=== PATIENT | male | born 1960 | race Hispanic/Latino ===

== ENCOUNTER 2017-09-08 12:21 | Inpatient (IN) | payer MEDICAID ==
[2017-09-08 13:37] LABS: Basophils % (Auto) 0.2 % (0.0-1.8); Eosinophils % (Auto) 1.9 % (0.0-4.3); Mean Corpuscular HGB Conc 30 % (32-34); Mean Corpuscular Hemoglobin 28 pg (28-32); Mean Corpuscular Volume 93 fl (84-94); Red Blood Count 4.31 M/mm3 (3.65-5.03); Red Cell Distribution Width 17.2 % (13.2-15.2); White Blood Count 6.4 K/mm3 (4.5-11.0)
[2017-09-08 13:40] LABS: Hematocrit 39.9 % (35.5-45.6); Hemoglobin 12.1 gm/dl (11.8-15.2); Platelet Count 92 K/mm3 (140-440)
[2017-09-08 13:53] LABS: Anion Gap 15 mmol/L; BUN/Creatinine Ratio 32; Blood Urea Nitrogen 35 mg/dL (9-20); Calcium 8.5 mg/dL (8.4-10.2); Carbon Dioxide 26 mmol/L (22-30); Chloride 135.6 mmol/L (98-107); Glucose 453 mg/dL (75-100); Potassium 3.6 mmol/L (3.6-5.0)
[2017-09-08 14:02] LABS: Sodium 176 mmol/L (137-145)
[2017-09-08] MEDS ORDERED: NACL 0.9% 1000 ML 1,000 ML IV ONE ×2 (16:33→19:25)
--- NOTE | 2017-09-08 17:52 | Cat Scan Report ---
FINAL REPORT PROCEDURE: CT HEAD/BRAIN WO CON TECHNIQUE: Computerized tomography of the head was performed without contrast material. HISTORY: ams COMPARISON: No prior studies are available for comparison. 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 Ventricles and subarachnoid spaces: Moderate to severely enlarged likely in proportionate degree of volume loss related to atrophy. Cerebrum: No evidence of hemorrhage, acute infarction or mass . Cerebellum and brainstem: No evidence of hemorrhage, acute infarction or mass. Vasculature: Intracranial atherosclerosis Comments: Moderate diffuse atrophy with scattered microischemic change. Encephalomalacia in the frontal lobes. IMPRESSION: No definite acute intracranial pathology
--- NOTE | 2017-09-08 18:00 | Emergency Department Report ---
ED Altered Mental Status HPI - General Chief Complaint: Hyperglycemia Stated Complaint: AMS/ELEV BLOOD SUGAR Time Seen by Provider: 09/08/17 16:32 Source: EMS, old records reviewed (no previous records for comparison) Mode of arrival: Stretcher Limitations: Altered Mental Status - History of Present Illness Initial Comments: 57-year-old male with a past medical history of diabetes, dementia, psychosis, and hypertension presents from a [facility] intermediate for altered mental status elevated glucose at 6:40 AM. At baseline per intermediate paperwork patient is able to feed himself and ambulates adlib. Currently patient is able to follow some basic commands however speaks intermittently and is difficult to understand. Pt is full Code. No pain reported - Related Data Allergies Allergy/AdvReac Type Severity Reaction Status Date / Time No Known Allergies Allergy Unverified 09/08/17 12:30 ED Review of Systems ROS: Stated complaint: AMS/ELEV BLOOD SUGAR Other details as noted in HPI Comment: Unobtainable due to pts medical conditions (limited) ED Past Medical Hx - Past Medical History Previous Medical History?: Yes Hx Hypertension: Yes Hx Diabetes: Yes Hx Psychiatric Treatment: Yes (psychosis) Hx Dementia: Yes - Surgical History Additional Surgical History: unknown - Social History Smoking Status: Unknown if ever smoked ED Physical Exam - General Limitations: Altered Mental Status - Other Other exam information: General: Patient is alert and makes eye consult Head exam: Atraumatic, normocephalic Eyes exam: Normal appearance, pupils equal reactive to light, will not track finger movement with his eyes ENT: Dried mucous membranes Neck exam: Normal inspection, full range of motion, no meningismus nontender Respiratory exam: Clear to auscultation bilateral, no wheezes, rales, crackles Cardiovascular: Normal rate and rhythm Abdomen: Soft, nondistended, mild suprapubic tenderness on palpation, with normal bowel sounds, no rebound, or guarding Extremity: Full range of motion normal inspection no deformity Back: Normal Inspection, full range of motion, no tenderness Neurologic: Alert, speaks on occasion but incomprehensible at times, no facial droop or asymmetry, equal hand sectionizer, equal foot dorsiflexion but would not lift her legs off the bed against gravity. Sensation grossly intact Psychiatric: normal affect, normal mood Skin: Warm, dry, intact ED Course Vital Signs 09/08/17 09/08/17 09/08/17 12:53 15:08 15:15 Temperature 97.8 F Pulse Rate 75 Respiratory 18 13 Rate Blood Pressure 101/63 Blood Pressure 95/61 [Left] O2 Sat by Pulse 96 91 97 Oximetry 09/08/17 09/08/17 09/08/17 15:31 15:45 16:00 Temperature Pulse Rate 63 60 57 L Respiratory 9 L 25 H 30 H Rate Blood Pressure 88/44 102/64 116/56 Blood Pressure [Left] O2 Sat by Pulse 96 97 94 Oximetry 09/08/17 09/08/17 09/08/17 16:15 16:30 16:45 Temperature Pulse Rate 62 61 59 L Respiratory 24 11 L 12 Rate Blood Pressure 116/56 102/63 100/71 Blood Pressure [Left] O2 Sat by Pulse 93 90 98 Oximetry 09/08/17 09/08/17 09/08/17 17:00 17:15 17:50 Temperature Pulse Rate 62 57 L Respiratory 16 24 Rate Blood Pressure 111/62 100/63 Blood Pressure [Left] O2 Sat by Pulse 96 100 96 Oximetry 09/08/17 09/08/17 09/08/17 18:01 18:15 18:31 Temperature Pulse Rate 56 L 56 L Respiratory 15 24 Rate Blood Pressure 98/58 108/54 Blood Pressure [Left] O2 Sat by Pulse 95 100 95 Oximetry 09/08/17 09/08/17 09/08/17 18:45 19:00 19:15 Temperature Pulse Rate 56 L 54 L 54 L Respiratory 23 25 H 14 Rate Blood Pressure 107/59 119/61 98/49 Blood Pressure [Left] O2 Sat by Pulse 94 97 94 Oximetry 09/08/17 09/08/17 09/08/17 19:30 19:45 20:00 Temperature Pulse Rate 53 L 76 62 Respiratory 17 26 H 10 L Rate Blood Pressure 103/55 102/58 112/64 Blood Pressure [Left] O2 Sat by Pulse 96 97 Oximetry 09/08/17 09/08/17 09/08/17 20:15 20:31 20:45 Temperature Pulse Rate 57 L 60 69 Respiratory 15 8 L 12 Rate Blood Pressure 112/64 122/44 122/44 Blood Pressure [Left] O2 Sat by Pulse Oximetry 09/08/17 09/08/17 09/08/17 21:00 21:15 21:31 Temperature Pulse Rate 58 L 60 59 L Respiratory 25 H 18 13 Rate Blood Pressure 113/48 113/48 134/47 Blood Pressure [Left] O2 Sat by Pulse Oximetry 09/08/17 09/08/17 09/08/17 21:45 22:01 22:19 Temperature Pulse Rate 78 60 Respiratory 12 16 Rate Blood Pressure 134/47 118/81 Blood Pressure [Left] O2 Sat by Pulse 98 Oximetry 09/08/17 23:25 Temperature 98.2 F Pulse Rate Respiratory Rate Blood Pressure Blood Pressure [Left] O2 Sat by Pulse Oximetry - Reevaluation(s) Reevaluation #1: 09/08/17 18:01 IV fluids and insulin initiated for dehydration and hypertension with hypernatremia. Systolic pressure 93 quickly increased to above 100 prior to administration of IV fluid Reevaluation #2: 09/08/17 19:26 1 L normal saline completed. Patient was straight cathed twice with no urine output. Patient instructed to place Roach in a second liter of normal saline ordered. Therefore urine pending at disposition - Lab Data Result diagrams: 09/08/17 13:19 09/08/17 22:09 Lab Results 09/08/17 09/08/17 09/08/17 Range/Units 13:19 13:19 13:19 WBC 6.4 (4.5-11.0) K/mm3 RBC 4.31 (3.65-5.03) M/mm3 Hgb 12.1 (11.8-15.2) gm/dl Hct 39.9 (35.5-45.6) % MCV 93 (84-94) fl MCH 28 (28-32) pg MCHC 30 L (32-34) % RDW 17.2 H (13.2-15.2) % Plt Count 92 L (140-440) K/mm3 Lymph % (Auto) 37.0 H (13.4-35.0) % Butler % (Auto) 7.2 (0.0-7.3) % Eos % (Auto) 1.9 (0.0-4.3) % Baso % (Auto) 0.2 (0.0-1.8) % Lymph # 2.3 (1.2-5.4) K/mm3 Butler # 0.5 (0.0-0.8) K/mm3 Eos # 0.1 (0.0-0.4) K/mm3 Baso # 0.0 (0.0-0.1) K/mm3 Seg Neutrophils % 53.7 (40.0-70.0) % Seg Neutrophils # 3.4 (1.8-7.7) K/mm3 VBG pH 7.456 H (7.320-7.420) Sodium 176 H* (137-145) mmol/L Potassium 3.6 (3.6-5.0) mmol/L Chloride 135.6 H (98-107) mmol/L Carbon Dioxide 26 (22-30) mmol/L Anion Gap 15 mmol/L BUN 35 H (9-20) mg/dL Creatinine 1.1 (0.8-1.5) mg/dL Estimated GFR > 60 ml/min BUN/Creatinine Ratio 32 % Glucose 453 H (75-100) mg/dL POC Glucose (70-105) Calcium 8.5 (8.4-10.2) mg/dL Total Creatine Kinase (55-170) units/L CK-MB (CK-2) (0.0-4.0) ng/mL CK-MB (CK-2) Rel Index (0-4) Troponin T (0.00-0.029) ng/mL Urine Color (Yellow) Urine Turbidity (Clear) Urine pH (5.0-7.0) Ur Specific [place] (1.003-1.030) Urine Protein (Negative) mg/dL Urine Glucose (UA) (Negative) mg/dL Urine Ketones (Negative) mg/dL Urine Blood (Negative) Urine Nitrite (Negative) Urine Bilirubin (Negative) Urine Urobilinogen (<2.0) mg/dL Ur Leukocyte Esterase (Negative) Urine WBC (Auto) (0.0-6.0) /HPF Urine RBC (Auto) (0.0-6.0) /HPF U Epithel Cells (Auto) (0-13.0) /HPF Urine Bacteria (Auto) (Negative) /HPF Urine Mucus /HPF 09/08/17 09/08/17 09/08/17 Range/Units 13:19 16:41 20:00 WBC (4.5-11.0) K/mm3 RBC (3.65-5.03) M/mm3 Hgb (11.8-15.2) gm/dl Hct (35.5-45.6) % MCV (84-94) fl MCH (28-32) pg MCHC (32-34) % RDW (13.2-15.2) % Plt Count (140-440) K/mm3 Lymph % (Auto) (13.4-35.0) % [place] % (Auto) (0.0-7.3) % Eos % (Auto) (0.0-4.3) % Baso % (Auto) (0.0-1.8) % Lymph # (1.2-5.4) K/mm3 Butler # (0.0-0.8) K/mm3 Eos # (0.0-0.4) K/mm3 Baso # (0.0-0.1) K/mm3 Seg Neutrophils % (40.0-70.0) % Seg Neutrophils # (1.8-7.7) K/mm3 VBG pH (7.320-7.420) Sodium (137-145) mmol/L Potassium (3.6-5.0) mmol/L Chloride (98-107) mmol/L Carbon Dioxide (22-30) mmol/L Anion Gap mmol/L BUN (9-20) mg/dL Creatinine (0.8-1.5) mg/dL Estimated GFR ml/min BUN/Creatinine Ratio % Glucose (75-100) mg/dL POC Glucose 436 H (70-105) Calcium (8.4-10.2) mg/dL Total Creatine Kinase 936 H (55-170) units/L CK-MB (CK-2) 4.4 H (0.0-4.0) ng/mL CK-MB (CK-2) Rel Index 0.4 (0-4) Troponin T < 0.010 (0.00-0.029) ng/mL Urine Color Gun[place] (Yellow) Urine Turbidity Clear (Clear) Urine pH 5.0 (5.0-7.0) Ur Specific [place] 1.028 (1.003-1.030) Urine Protein 100 mg/dl (Negative) mg/dL Urine Glucose (UA) >=500 (Negative) mg/dL Urine Ketones Neg (Negative) mg/dL Urine Blood Lg (Negative) Urine Nitrite Neg (Negative) Urine Bilirubin Neg (Negative) Urine Urobilinogen 4.0 (<2.0) mg/dL Ur Leukocyte Esterase Neg (Negative) Urine WBC (Auto) 4.0 (0.0-6.0) /HPF Urine RBC (Auto) 105.0 (0.0-6.0) /HPF U Epithel Cells (Auto) 1.0 (0-13.0) /HPF Urine Bacteria (Auto) 1+ (Negative) /HPF Urine Mucus 3+ /HPF 09/08/17 Range/Units 21:38 WBC (4.5-11.0) K/mm3 RBC (3.65-5.03) M/mm3 Hgb (11.8-15.2) gm/dl Hct (35.5-45.6) % MCV (84-94) fl MCH (28-32) pg MCHC (32-34) % RDW (13.2-15.2) % Plt Count (140-440) K/mm3 Lymph % (Auto) (13.4-35.0) % Butler % (Auto) (0.0-7.3) % Eos % (Auto) (0.0-4.3) % Baso % (Auto) (0.0-1.8) % Lymph # (1.2-5.4) K/mm3 Butler # (0.0-0.8) K/mm3 Eos # (0.0-0.4) K/mm3 Baso # (0.0-0.1) K/mm3 Seg Neutrophils % (40.0-70.0) % Seg Neutrophils # (1.8-7.7) K/mm3 VBG pH (7.320-7.420) Sodium (137-145) mmol/L Potassium (3.6-5.0) mmol/L Chloride (98-107) mmol/L Carbon Dioxide (22-30) mmol/L Anion Gap mmol/L BUN (9-20) mg/dL Creatinine (0.8-1.5) mg/dL Estimated GFR ml/min BUN/Creatinine Ratio % Glucose (75-100) mg/dL POC Glucose 224 H (70-105) Calcium (8.4-10.2) mg/dL Total Creatine Kinase (55-170) units/L CK-MB (CK-2) (0.0-4.0) ng/mL CK-MB (CK-2) Rel Index (0-4) Troponin T (0.00-0.029) ng/mL Urine Color (Yellow) Urine Turbidity (Clear) Urine pH (5.0-7.0) Ur Specific [place] (1.003-1.030) Urine Protein (Negative) mg/dL Urine Glucose (UA) (Negative) mg/dL Urine Ketones (Negative) mg/dL Urine Blood (Negative) Urine Nitrite (Negative) Urine Bilirubin (Negative) Urine Urobilinogen (<2.0) mg/dL Ur Leukocyte Esterase (Negative) Urine WBC (Auto) (0.0-6.0) /HPF Urine RBC (Auto) (0.0-6.0) /HPF U Epithel Cells (Auto) (0-13.0) /HPF Urine Bacteria (Auto) (Negative) /HPF Urine Mucus /HPF - EKG Data -: EKG Interpreted by Me (Possible junctional rhythm) EKG shows normal: axis (32), QRS complexes (129), ST-T waves (ant lat tinv) Rate: bradycardia (54) - Radiology Data Radiology results: report reviewed (CT head: No acute findings) - Medical Decision Making Plan to admit patient to the hospital for dehydration. Normal renal function at this time with elevated BUN. Significant elevated sodium level. Systolic pressure greater than 100. Still awaiting urine output after 1 L of saline to rule out infection. Hyperglycemia without signs of DKA at this time. - Differential Diagnosis dehydration, UTI, [place], encephalopathy, DKA, dementia, delirium Critical Care Time: No Critical care attestation.: If time is entered above; I have spent that time in minutes in the direct care of this critically ill patient, excluding procedure time. ED Disposition Clinical Impression: Dementia, Altered mental status, Dehydration, Hypernatremia, Hyperglycemia, Abnormal EKG Disposition: OP ADMIT IP TO THIS HOSP Is pt being admited?: Yes Condition: Stable Time of Disposition: 19:27 (Dr Brady/hosp)
[2017-09-08 19:47] LABS: Creatine Kinase 936 units/L (55-170); Creatine Kinase MB 4.4 ng/mL (0.0-4.0)
[2017-09-08 20:37] LABS: Bacteria,Urine 1+ /HPF (Negative); Bilirubin,Urine NEG (Negative); Blood,Urine LG (Negative); Ketones,Urine NEG (Negative); Leukocyte Esterase,Urine NEG (Negative); Mucus,Urine 3+ /HPF; Nitrite,Urine NEG (Negative)
[2017-09-08] MEDS ORDERED: D50W (25GM) Syringe IV PRN (21:47)
[2017-09-08] MEDS ORDERED: MILK OF MAGNESIA PO PRN (21:47)
[2017-09-08] MEDS ORDERED: ZOFRAN IV PRN (21:47)
[2017-09-08] MEDS ORDERED: DULCOLAX PR PRN (21:47)
[2017-09-08] MEDS ORDERED: TYLENOL PO PRN (21:47)
--- NOTE | 2017-09-08 21:49 | History and Physical Report ---
History of Present Illness Date of examination: 09/08/17 History of present illness: 57 year old man with history of DM, dementia, psychoses was sent from [facility] for altered mental status. He is unable to provide a history. Review of systems unobtainable PAST MEDICAL HISTORY: DM , dementia, psychoses PAST SURGICAL HISTORY:unknown FAMILY HISTORY: unknown SOCIAL HISTORY: unknown Medications and Allergies Allergies Allergy/AdvReac Type Severity Reaction Status Date / Time No Known Allergies Allergy Unverified 09/08/17 12:30 Home Medications Medication Instructions Recorded Confirmed Last Taken Type Glipizide/Metformin HCl 1 each PO DAILY #60 tablet 09/15/17 Unknown Rx [glipiZIDE-Metformin 2.5-500 mg] Insulin Regular, Human [HumuLIN R] 0 units SUB-Q ACHS units 09/15/17 Unknown Rx Exam - Physical Exam Narrative exam: Gen. appearance: Patient lying in bed, no apparent distress HEENT: Normocephalic, atraumatic, pupils equally round and reactive to light, extraocular movement intact, and no sclericterus,. No JVD or thyromegaly or nodule,neck supple, no carotid bruit ,mucous membranes moist, no exudate or erythema Heart: S1, S2, regular rate and rhythm Lungs: Clear to auscultation bilaterally, breathing comfortable Abdomen: Positive bowel sounds, nontender, nondistended, no organomegaly Extremity: no edemam cyanosis, clubbing Skin: No rash, nodules, warm, dry Neuro: difficult to assess - Constitutional Vitals: Temp Pulse Resp BP Pulse Ox 97.8 F 53 L 17 103/55 96 09/08/17 12:53 09/08/17 19:30 09/08/17 19:30 09/08/17 19:30 09/08/17 19:30 Results - Labs CBC & Chem 7: 09/10/17 05:58 09/14/17 09:25 Labs: Abnormal lab results 09/08/17 09/08/17 09/08/17 Range/Units 13:19 13:19 13:19 MCHC 30 L (32-34) % RDW 17.2 H (13.2-15.2) % Plt Count 92 L (140-440) K/mm3 Lymph % (Auto) 37.0 H (13.4-35.0) % VBG pH 7.456 H (7.320-7.420) Sodium 176 H* (137-145) mmol/L Chloride 135.6 H (98-107) mmol/L BUN 35 H (9-20) mg/dL Glucose 453 H (75-100) mg/dL POC Glucose (70-105) Total Creatine Kinase (55-170) units/L CK-MB (CK-2) (0.0-4.0) ng/mL 09/08/17 09/08/17 09/08/17 Range/Units 13:19 16:41 21:38 MCHC (32-34) % RDW (13.2-15.2) % Plt Count (140-440) K/mm3 Lymph % (Auto) (13.4-35.0) % VBG pH (7.320-7.420) Sodium (137-145) mmol/L Chloride (98-107) mmol/L BUN (9-20) mg/dL Glucose (75-100) mg/dL POC Glucose 436 H 224 H (70-105) Total Creatine Kinase 936 H (55-170) units/L CK-MB (CK-2) 4.4 H (0.0-4.0) ng/mL - Imaging and Cardiology CT Scan - head: report reviewed Assessment and Plan Assessment Metabolic encephalopathy Hypernatremia Diabetes Dementia psychoses Plan Admit to medicine Start IV fluid, monitor sodium levels check fingersticks DVT prophalaxis
[2017-09-08 22:41] LABS: Anion Gap 18 mmol/L; BUN/Creatinine Ratio 34; Blood Urea Nitrogen 31 mg/dL (9-20); Calcium 7.8 mg/dL (8.4-10.2); Carbon Dioxide 24 mmol/L (22-30); Glucose 207 mg/dL (75-100); Potassium 3.8 mmol/L (3.6-5.0)
[2017-09-08 22:50] LABS: Sodium 176 mmol/L (137-145)
[2017-09-09 01:27] LABS: Anion Gap 15 mmol/L; BUN/Creatinine Ratio 31; Blood Urea Nitrogen 31 mg/dL (9-20); Calcium 8.3 mg/dL (8.4-10.2); Carbon Dioxide 27 mmol/L (22-30); Chloride 138.5 mmol/L (98-107); Glucose 271 mg/dL (75-100); Potassium 4.5 mmol/L (3.6-5.0)
[2017-09-09 01:51] LABS: Sodium 178 mmol/L (137-145)
[2017-09-09] MEDS: D5W 1,000 ML IV SCH ×3 (02:57→23:54)
[2017-09-09 07:39] LABS: Basophils % (Auto) 0.3 % (0.0-1.8); Eosinophils % (Auto) 1.6 % (0.0-4.3); Hematocrit 35.4 % (35.5-45.6); Hemoglobin 11.1 gm/dl (11.8-15.2); Mean Corpuscular HGB Conc 31 % (32-34); Mean Corpuscular Hemoglobin 29 pg (28-32); Mean Corpuscular Volume 93 fl (84-94); Red Blood Count 3.82 M/mm3 (3.65-5.03); Red Cell Distribution Width 17.1 % (13.2-15.2); White Blood Count 5.9 K/mm3 (4.5-11.0)
[2017-09-09 07:45] LABS: Platelet Count 87 K/mm3 (140-440)
[2017-09-09 07:53] LABS: Anion Gap 17 mmol/L; BUN/Creatinine Ratio 34; Blood Urea Nitrogen 31 mg/dL (9-20); Calcium 7.6 mg/dL (8.4-10.2); Carbon Dioxide 26 mmol/L (22-30); Chloride 133.2 mmol/L (98-107); Glucose 394 mg/dL (75-100); Potassium 4.1 mmol/L (3.6-5.0)
[2017-09-09 07:58] LABS: Sodium 172 mmol/L (137-145)
[2017-09-09] MEDS ORDERED: LOVENOX SUB-Q SCH (10:00)
[2017-09-09 10:41] LABS: Anion Gap 16 mmol/L; BUN/Creatinine Ratio 30; Blood Urea Nitrogen 30 mg/dL (9-20); Calcium 7.9 mg/dL (8.4-10.2); Carbon Dioxide 28 mmol/L (22-30); Chloride 129.1 mmol/L (98-107); Glucose 420 mg/dL (75-100); Potassium 4.4 mmol/L (3.6-5.0)
[2017-09-09 10:43] LABS: Sodium 169 mmol/L (137-145)
--- NOTE | 2017-09-09 11:24 | Progress Note ---
Assessment and Plan Assessment and plan: Toxic metabolic encephalopathy with confusion. Neurochecks, supportive care Severe hypernatremia. Continue 5%Dextrose. Check BMP regularly Diabetes mellitus type 2. Continue fingerstick glucose q6h. Will start Novolin 70/30 bid, sliding scale. Dementia at baseline. Supportive care Psychosis by history. DVT Prophylaxis. SCds only because of thrombocytopenia Thrombocytopenia. Full code status. History Interval history: Altered mental status No fever Hospitalist Physical - Physical exam Narrative exam: GEN APPEARANCE : Not in acute distress, HEENT: Normocephalic, Atraumatic NECK : supple, no JVD LUNGS: Clear to auscultation bilaterally, no crackles or wheeze HEART: S1 and S2 regular, no murmurs, rubs or gallop, ABD: Soft, no tenderness, no distension, normal bowel sounds EXT: No edema, no clubbing, no cyanosis NEURO: Awake,alert, confused, moves all extremities - Constitutional Vitals: Temp Pulse Resp BP Pulse Ox 98.6 F 62 20 155/70 95 09/09/17 00:00 09/09/17 00:00 09/09/17 00:00 09/09/17 00:00 09/09/17 00:00 Results - Labs CBC & Chem 7: 09/10/17 05:58 09/10/17 05:58 Labs: Laboratory Last Values WBC 5.9 K/mm3 (4.5-11.0) 09/09/17 06:44 RBC 3.82 M/mm3 (3.65-5.03) 09/09/17 06:44 Hgb 11.1 gm/dl (11.8-15.2) L 09/09/17 06:44 Hct 35.4 % (35.5-45.6) L 09/09/17 06:44 MCV 93 fl (84-94) 09/09/17 06:44 MCH 29 pg (28-32) 09/09/17 06:44 MCHC 31 % (32-34) L 09/09/17 06:44 RDW 17.1 % (13.2-15.2) H 09/09/17 06:44 Plt Count 87 K/mm3 (140-440) L 09/09/17 06:44 Lymph % (Auto) 26.2 % (13.4-35.0) 09/09/17 06:44 [place] % (Auto) 5.9 % (0.0-7.3) 09/09/17 06:44 Eos % (Auto) 1.6 % (0.0-4.3) 09/09/17 06:44 Baso % (Auto) 0.3 % (0.0-1.8) 09/09/17 06:44 Lymph # 1.5 K/mm3 (1.2-5.4) 09/09/17 06:44 [place]ricks # 0.3 K/mm3 (0.0-0.8) 09/09/17 06:44 Eos # 0.1 K/mm3 (0.0-0.4) 09/09/17 06:44 Baso # 0.0 K/mm3 (0.0-0.1) 09/09/17 06:44 Seg Neutrophils % 66.0 % (40.0-70.0) 09/09/17 06:44 Seg Neutrophils # 3.9 K/mm3 (1.8-7.7) 09/09/17 06:44 VBG pH 7.456 (7.320-7.420) H 09/08/17 13:19 Sodium 169 mmol/L (137-145) H* 09/09/17 10:14 Potassium 4.4 mmol/L (3.6-5.0) 09/09/17 10:14 Chloride 129.1 mmol/L (98-107) H 09/09/17 10:14 Carbon Dioxide 28 mmol/L (22-30) 09/09/17 10:14 Anion Gap 16 mmol/L 09/09/17 10:14 BUN 30 mg/dL (9-20) H 09/09/17 10:14 Creatinine 1.0 mg/dL (0.8-1.5) 09/09/17 10:14 Estimated GFR > 60 ml/min 09/09/17 10:14 BUN/Creatinine Ratio 30 % 09/09/17 10:14 Glucose 420 mg/dL (75-100) H 09/09/17 10:14 POC Glucose 224 (70-105) H 09/08/17 21:38 Calcium 7.9 mg/dL (8.4-10.2) L 09/09/17 10:14 Total Creatine Kinase 936 units/L (55-170) H 09/08/17 13:19 CK-MB (CK-2) 4.4 ng/mL (0.0-4.0) H 09/08/17 13:19 CK-MB (CK-2) Rel Index 0.4 (0-4) 09/08/17 13:19 Troponin T < 0.010 ng/mL (0.00-0.029) 09/08/17 13:19 Urine Color Gunjan (Yellow) 09/08/17 20:00 Urine Turbidity Clear (Clear) 09/08/17 20:00 Urine pH 5.0 (5.0-7.0) 09/08/17 20:00 Ur Specific [place] 1.028 (1.003-1.030) 09/08/17 20:00 Urine Protein 100 mg/dl mg/dL (Negative) 09/08/17 20:00 Urine Glucose (UA) >=500 mg/dL (Negative) 09/08/17 20:00 Urine Ketones Neg mg/dL (Negative) 09/08/17 20:00 Urine Blood Lg (Negative) 09/08/17 20:00 Urine Nitrite Neg (Negative) 09/08/17 20:00 Urine Bilirubin Neg (Negative) 09/08/17 20:00 Urine Urobilinogen 4.0 mg/dL (<2.0) 09/08/17 20:00 Ur Leukocyte Esterase Neg (Negative) 09/08/17 20:00 Urine WBC (Auto) 4.0 /HPF (0.0-6.0) 09/08/17 20:00 Urine RBC (Auto) 105.0 /HPF (0.0-6.0) 09/08/17 20:00 U Epithel Cells (Auto) 1.0 /HPF (0-13.0) 09/08/17 20:00 Urine Bacteria (Auto) 1+ /HPF (Negative) 09/08/17 20:00 Urine Mucus 3+ /HPF 09/08/17 20:00
[2017-09-10 07:13] LABS: Hematocrit 36.7 % (35.5-45.6); Hemoglobin 11.6 gm/dl (11.8-15.2); Mean Corpuscular HGB Conc 32 % (32-34); Mean Corpuscular Hemoglobin 29 pg (28-32); Mean Corpuscular Volume 91 fl (84-94); Red Blood Count 4.04 M/mm3 (3.65-5.03); Red Cell Distribution Width 15.5 % (13.2-15.2); White Blood Count 5.6 K/mm3 (4.5-11.0)
[2017-09-10 07:24] LABS: Alanine Aminotransferase 27 units/L (7-56); Albumin 2.3 g/dL (3.9-5); Albumin/Globulin Ratio 0.6 %; Alkaline Phosphatase 80 units/L (35-129); Anion Gap 14 mmol/L; BUN/Creatinine Ratio 26; Blood Urea Nitrogen 21 mg/dL (9-20); Calcium 7.6 mg/dL (8.4-10.2); Carbon Dioxide 29 mmol/L (22-30); Chloride 122.2 mmol/L (98-107); Creatine Kinase 1118 units/L (55-170); Glucose 428 mg/dL (75-100); Platelet Count 98 K/mm3 (140-440); Potassium 4.1 mmol/L (3.6-5.0); Total Protein 6.3 g/dL (6.3-8.2)
[2017-09-10 07:30] LABS: Sodium 161 mmol/L (137-145)
[2017-09-10] MEDS: D5W 1,000 ML IV SCH ×2 (12:04→23:01)
--- NOTE | 2017-09-10 16:29 | Progress Note ---
Assessment and Plan Toxic metabolic encephalopathy - likely due to hypernatremia and hyperglycemia - cont Neurochecks, supportive care, treat underlying cause Severe hypernatremia. - Continue 5%Dextrose. Check BMP q6 h Diabetes mellitus type 2. - Continue fingerstick glucose q6h. - Will cont NPH insulin bid, sliding scale. - will increase NPH to 20 unit BID Dementia at baseline. - cont Supportive care Psychosis by history. - will monitor for now DVT Prophylaxis. - SCds only because of thrombocytopenia Thrombocytopenia. - likely chronic, will monitor Full code status. Hospitalist Physical GEN APPEARANCE : Not in acute distress, restrained HEENT: Normocephalic, Atraumatic NECK : supple, no JVD LUNGS: Clear to auscultation bilaterally, no crackles or wheeze HEART: S1 and S2 regular, no murmurs, rubs or gallop, ABD: Soft, no tenderness, no distension, normal bowel sounds EXT: No edema, no clubbing, no cyanosis NEURO: Awake,alert, confused, moves all extremities Subjective Date of service: 09/10/17 Interval history: still confused, remained restrained Objective - Constitutional Vitals: Vital Signs - 12hr 09/10/17 09/10/17 05:50 08:29 Temperature 97.4 F L Pulse Rate 64 Respiratory 18 Rate Blood Pressure 123/100 O2 Sat by Pulse 99 96 Oximetry - Labs CBC & Chem 7: 09/10/17 05:58 09/11/17 05:27 Labs: Abnormal lab results 09/09/17 09/10/17 09/10/17 Range/Units 22:08 05:58 05:58 Hgb 11.6 L (11.8-15.2) gm/dl RDW 15.5 H (13.2-15.2) % Plt Count 98 L (140-440) K/mm3 Sodium 161 H* (137-145) mmol/L Chloride 122.2 H (98-107) mmol/L BUN 21 H (9-20) mg/dL Glucose 428 H (75-100) mg/dL POC Glucose 397 H (70-105) Calcium 7.6 L (8.4-10.2) mg/dL Total Creatine Kinase 1118 H (55-170) units/L Albumin 2.3 L (3.9-5) g/dL 09/10/17 09/10/17 09/10/17 Range/Units 08:23 12:01 14:35 Hgb (11.8-15.2) gm/dl RDW (13.2-15.2) % Plt Count (140-440) K/mm3 Sodium (137-145) mmol/L Chloride (98-107) mmol/L BUN (9-20) mg/dL Glucose (75-100) mg/dL POC Glucose 396 H 478 H 373 H (70-105) Calcium (8.4-10.2) mg/dL Total Creatine Kinase (55-170) units/L Albumin (3.9-5) g/dL
[2017-09-10 20:01] LABS: Anion Gap 14 mmol/L; BUN/Creatinine Ratio 24; Blood Urea Nitrogen 19 mg/dL (9-20); Carbon Dioxide 28 mmol/L (22-30); Chloride 117.8 mmol/L (98-107); Glucose 322 mg/dL (75-100); Potassium 3.5 mmol/L (3.6-5.0); Sodium 156 mmol/L (137-145)
[2017-09-11 06:19] LABS: BUN/Creatinine Ratio 21; Blood Urea Nitrogen 15 mg/dL (9-20); Calcium 6.7 mg/dL (8.4-10.2); Carbon Dioxide 27 mmol/L (22-30)
[2017-09-11 06:20] LABS: Anion Gap 12 mmol/L; Chloride 103.8 mmol/L (98-107); Sodium 140 mmol/L (137-145)
[2017-09-11 06:25] LABS: Glucose 641 mg/dL (75-100); Potassium 2.8 mmol/L (3.6-5.0)
[2017-09-11] MEDS ORDERED: NOVOLOG SUB-Q ONE (07:40)
[2017-09-11] MEDS: NACL 0.45% 1000 ML 1,000 ML IV SCH (08:29)
[2017-09-11] MEDS: KCL 20MEQ/100ML 20 MEQ/100 ML BAG IV SCH ×2 (08:29→09:52)
[2017-09-11] MEDS: KCL 10MEQ/100ML 10 MEQ/100 ML BAG IV SCH ×4 (12:00→18:30)
--- NOTE | 2017-09-11 16:47 | Progress Note ---
Assessment and Plan Toxic metabolic encephalopathy - likely due to hypernatremia and hyperglycemia - cont Neurochecks, supportive care, treat underlying cause Severe hypernatremia. - resolved with Continue 5%Dextrose. - will stop D5 and will cont on 1/2 NS Diabetes mellitus type 2 with hyperglycemia. - Continue fingerstick glucose q6h. - Will cont NPH insulin bid, sliding scale. - BP uncontrolled due to D5 saline, will change to 1/2 NS - ADA diet Dementia at baseline. - cont Supportive care Psychosis by history. - will monitor for now DVT Prophylaxis. - SCds only because of thrombocytopenia Thrombocytopenia. - likely chronic, will monitor Full code status. Hospitalist Physical GEN APPEARANCE : Not in acute distress, restrained HEENT: Normocephalic, Atraumatic NECK : supple, no JVD LUNGS: Clear to auscultation bilaterally, no crackles or wheeze HEART: S1 and S2 regular, no murmurs, rubs or gallop, ABD: Soft, no tenderness, no distension, normal bowel sounds EXT: No edema, no clubbing, no cyanosis NEURO: Awake,alert, oroented to self, moves all extremities Subjective Date of service: 09/11/17 Interval history: mental status improved, remained restrained BG 649 this am Objective - Constitutional Vitals: Vital Signs - 12hr 09/11/17 08:03 O2 Sat by Pulse 93 Oximetry - Labs CBC & Chem 7: 09/10/17 05:58 09/11/17 15:57 Labs: Abnormal lab results 09/10/17 09/10/17 09/11/17 Range/Units 18:42 22:14 05:27 Sodium 156 H (137-145) mmol/L Potassium 3.5 L 2.8 L* (3.6-5.0) mmol/L Chloride 117.8 H (98-107) mmol/L Creatinine 0.7 L (0.8-1.5) mg/dL Glucose 322 H 641 H* (75-100) mg/dL POC Glucose 268 H (70-105) Calcium 7.0 L 6.7 L (8.4-10.2) mg/dL 09/11/17 09/11/17 Range/Units 09:08 15:57 Sodium (137-145) mmol/L Potassium (3.6-5.0) mmol/L Chloride 113.1 H (98-107) mmol/L Creatinine 0.6 L (0.8-1.5) mg/dL Glucose 169 H (75-100) mg/dL POC Glucose 162 H (70-105) Calcium 7.4 L (8.4-10.2) mg/dL
[2017-09-11 17:12] LABS: Potassium TNR mmol/L (3.6-5.0); Sodium TNR mmol/L (137-145)
[2017-09-11 17:14] LABS: Anion Gap TNR mmol/L; BUN/Creatinine Ratio TNR; Blood Urea Nitrogen TNR mg/dL (9-20); Carbon Dioxide TNR mmol/L (22-30); Chloride TNR mmol/L (98-107)
[2017-09-11 17:15] LABS: Calcium TNR mg/dL (8.4-10.2); Glucose TNR mg/dL (75-100)
[2017-09-12] MEDS: NACL 0.45% 1000 ML 1,000 ML IV SCH (00:35)
[2017-09-12 08:07] LABS: BUN/Creatinine Ratio 17; Blood Urea Nitrogen 12 mg/dL (9-20); Calcium 7.4 mg/dL (8.4-10.2); Carbon Dioxide 24 mmol/L (22-30); Chloride 110.8 mmol/L (98-107); Glucose 197 mg/dL (75-100); Sodium 146 mmol/L (137-145)
[2017-09-12 08:11] LABS: Anion Gap 16 mmol/L; Potassium 4.7 mmol/L (3.6-5.0)
--- NOTE | 2017-09-12 15:10 | Progress Note ---
Assessment and Plan Toxic metabolic encephalopathy - likely due to hypernatremia and hyperglycemia - cont Neurochecks, supportive care, treat underlying cause Severe hypernatremia. - resolved with Continue 5% Dextrose. - now cont on 1/2 NS Diabetes mellitus type 2 with hyperglycemia. - Continue fingerstick glucose q6h. - Will cont NPH insulin bid, sliding scale. - BG was uncontrolled due to D5 saline, changed to 1/2 NS - ADA diet Dementia at baseline. - cont Supportive care Psychosis by history. - will monitor for now - will consult psych DVT Prophylaxis. - SCds only because of thrombocytopenia Thrombocytopenia. - likely chronic, will monitor Full code status. Hospitalist Physical GEN APPEARANCE : Not in acute distress, restrained HEENT: Normocephalic, Atraumatic NECK : supple, no JVD LUNGS: Clear to auscultation bilaterally, no crackles or wheeze HEART: S1 and S2 regular, no murmurs, rubs or gallop, ABD: Soft, no tenderness, no distension, normal bowel sounds EXT: No edema, no clubbing, no cyanosis NEURO: Awake,alert, oroented to self, moves all extremities Subjective Date of service: 09/12/17 Interval history: mental status improved, remained restrained BG 211 this am Objective - Constitutional Vitals: Vital Signs - 12hr 09/12/17 09/12/17 09/12/17 05:46 08:45 12:06 Temperature 97.5 F L 98.4 F Pulse Rate 54 L 54 L 56 L Respiratory 20 18 18 Rate Blood Pressure 110/58 116/60 109/62 O2 Sat by Pulse 95 98 95 Oximetry - Labs CBC & Chem 7: 09/10/17 05:58 09/12/17 07:15 Labs: Abnormal lab results 09/11/17 09/11/17 09/11/17 Range/Units 13:51 17:37 21:53 Sodium (137-145) mmol/L Chloride (98-107) mmol/L Creatinine (0.8-1.5) mg/dL Glucose (75-100) mg/dL POC Glucose 142 H 166 H 252 H (70-105) Calcium (8.4-10.2) mg/dL 09/12/17 09/12/17 Range/Units 07:15 08:52 Sodium 146 H (137-145) mmol/L Chloride 110.8 H (98-107) mmol/L Creatinine 0.7 L (0.8-1.5) mg/dL Glucose 197 H (75-100) mg/dL POC Glucose 211 H (70-105) Calcium 7.4 L (8.4-10.2) mg/dL
[2017-09-12] MEDS: LOVENOX SUB-Q SCH (22:04)
[2017-09-13 06:59] LABS: Anion Gap 14 mmol/L; BUN/Creatinine Ratio 17; Blood Urea Nitrogen 10 mg/dL (9-20); Calcium 7.9 mg/dL (8.4-10.2); Carbon Dioxide 26 mmol/L (22-30); Chloride 109.1 mmol/L (98-107); Glucose 48 mg/dL (75-100); Potassium 3.3 mmol/L (3.6-5.0); Sodium 146 mmol/L (137-145)
[2017-09-13] MEDS: NACL 0.45% 1000 ML 1,000 ML IV SCH ×2 (10:47→22:33)
[2017-09-13] MEDS: KCL 10MEQ/100ML 10 MEQ/100 ML BAG IV SCH ×2 (14:17→15:36)
[2017-09-13] MEDS: GLUCOPHAGE PO SCH (19:58)
--- NOTE | 2017-09-13 22:04 | Progress Note ---
Assessment and Plan Toxic metabolic encephalopathy - likely due to hypernatremia and hyperglycemia - cont Neurochecks, supportive care, treat underlying cause Severe hypernatremia. - resolved with Continue 5% Dextrose. - now cont on 1/2 NS Diabetes mellitus type 2 with hyperglycemia. - Continue fingerstick glucose q6h. - started on NPH insulin bid, sliding scale. - BG was uncontrolled due to D5 saline, changed to 1/2 NS - ADA diet - became hypoglycemic today, will d/c NPH FOR NOW Dementia at baseline. - cont Supportive care HYPOKALEMIA - REPLETE AND MONITOR Psychosis by history. - will monitor for now - will consult psych DVT Prophylaxis. - SCds only because of thrombocytopenia Thrombocytopenia. - likely chronic, will monitor Full code status. Hospitalist Physical GEN APPEARANCE : Not in acute distress, restrained HEENT: Normocephalic, Atraumatic NECK : supple, no JVD LUNGS: Clear to auscultation bilaterally, no crackles or wheeze HEART: S1 and S2 regular, no murmurs, rubs or gallop, ABD: Soft, no tenderness, no distension, normal bowel sounds EXT: No edema, no clubbing, no cyanosis NEURO: Awake,alert, oroented to self, moves all extremities Subjective Date of service: 09/13/17 Interval history: mental status improved, remained restrained BG was low this am Objective - Constitutional Vitals: Vital Signs - 12hr 09/13/17 09/13/17 09/13/17 12:00 12:37 12:41 Temperature 98.9 F Pulse Rate 54 L 54 L Respiratory 16 Rate Blood Pressure 110/67 O2 Sat by Pulse 98 Oximetry 09/13/17 09/13/17 16:04 20:18 Temperature 97.4 F L Pulse Rate 57 L Respiratory 20 Rate Blood Pressure 126/68 129/79 O2 Sat by Pulse 98 Oximetry - Labs CBC & Chem 7: 09/10/17 05:58 09/13/17 06:03 Labs: Abnormal lab results 09/12/17 09/13/17 09/13/17 Range/Units 22:03 06:03 08:07 Sodium 146 H (137-145) mmol/L Potassium 3.3 L D (3.6-5.0) mmol/L Chloride 109.1 H (98-107) mmol/L Creatinine 0.6 L (0.8-1.5) mg/dL Glucose 48 L (75-100) mg/dL POC Glucose 166 H 65 L (70-105) Calcium 7.9 L (8.4-10.2) mg/dL 09/13/17 09/13/17 Range/Units 11:44 21:50 Sodium (137-145) mmol/L Potassium (3.6-5.0) mmol/L Chloride (98-107) mmol/L Creatinine (0.8-1.5) mg/dL Glucose (75-100) mg/dL POC Glucose 108 H 119 H (70-105) Calcium (8.4-10.2) mg/dL
[2017-09-13] MEDS: LOVENOX SUB-Q SCH (22:29)
[2017-09-14] MEDS ORDERED: K-DUR PO NR (09:00)
[2017-09-14 10:14] LABS: Anion Gap 19 mmol/L; BUN/Creatinine Ratio 18; Blood Urea Nitrogen 9 mg/dL (9-20); Calcium 7.7 mg/dL (8.4-10.2); Carbon Dioxide 21 mmol/L (22-30); Chloride 100.9 mmol/L (98-107); Glucose 177 mg/dL (75-100); Potassium 3.8 mmol/L (3.6-5.0); Sodium 137 mmol/L (137-145)
[2017-09-14] MEDS: GLUCOPHAGE PO SCH ×2 (11:00→18:57)
--- NOTE | 2017-09-14 14:21 | Consultation ---
History of Present Illness - Reason for Consult Consult date: 09/14/17 Reason for consult: Mental Health Evaluation Requesting physician: BRIDGET PRUITT - Chief Complaint Chief complaint: "Hello" - History of Present Psychiatric Illness 57-year-old white male presenting to [facility] for AMS. Today patient is calm, but confused during the assessment. The patient was asked several questions, but his answers were not logical. MMSE tried with patient, but unsuccessful. No gestures of SI/HI's. Medications and Allergies Allergies Allergy/AdvReac Type Severity Reaction Status Date / Time No Known Allergies Allergy Unverified 09/08/17 12:30 Home Medications Medication Instructions Recorded Confirmed Last Taken Type No Known Home Medications [No 09/10/17 09/10/17 Unknown History Reported Home Medications] Active Meds: Active Medications Acetaminophen (Tylenol) 650 mg PO Q4H PRN PRN Reason: Pain MILD(1-3)/Fever >100.5/MORALES Bisacodyl (Dulcolax) 10 mg OH QDAY PRN PRN Reason: Constipation unrelieved by MOM Dextrose (D50w (25gm) Syringe) 50 ml IV PRN PRN PRN Reason: Hypoglycemia Enoxaparin Sodium (Lovenox) 40 mg SUB-Q QDAY@2200 EDWARDO Last Admin: 09/13/17 22:29 Dose: 40 mg Sodium Chloride (Nacl 0.45% 1000 Ml) 1,000 mls @ 75 mls/hr IV DIRECT [facility] Last Admin: 09/13/17 22:33 Dose: 75 mls/hr Insulin Human Regular (Novolin R) 0 units SUB-Q ACHS EDWARDO PRN Reason: Protocol Last Admin: 09/14/17 08:30 Dose: Not Given Magnesium Hydroxide (Milk Of Magnesia) 30 ml PO Q4H PRN PRN Reason: Constipation Metformin HCl (Glucophage) 500 mg PO BIDDIAB [facility] Last Admin: 09/14/17 11:00 Dose: 500 mg Ondansetron HCl (Zofran) 4 mg IV Q8H PRN PRN Reason: N/V unrelieved by Reglan Past psychiatric history - Past Medical History Past Medical History: diabetes Past Surgical History: Other (Unable to obtain) - past Psychiatric treatment and history psychiatric treatment history: Unable to obtain a psy hx and fam psy hx. - Social History Social history: other (Reside at a care home) Mental Status Exam - Vital signs Last Vital Signs Temp 97.3 F L 09/14/17 08:05 Pulse 62 09/14/17 12:22 Resp 18 09/14/17 08:05 BP 116/53 09/14/17 12:22 Pulse Ox 94 09/14/17 13:31 - Exam Narrative exam: MSE: Appearance: calm Behavior: regular eye contact Speech: regular rate and tone Mood: unable to assess Affect: flat Thought Process: unable to assess Thought Content: no gestures of SI/HI's and AVH's Motor Activity: sitting up in bed Cognition: confused Insight: poor Judgment: poor Results Result Diagrams: 09/10/17 05:58 09/14/17 09:25 Abnormal lab results 09/13/17 09/14/17 Range/Units 21:50 09:25 Carbon Dioxide 21 L (22-30) mmol/L Creatinine 0.5 L (0.8-1.5) mg/dL Glucose 177 H (75-100) mg/dL POC Glucose 119 H (70-105) Calcium 7.7 L (8.4-10.2) mg/dL All other labs normal. Assessment and Plan Assessment and plan: Impression: Delirium. Today patient is calm, but confused during the assessment. Patient in restraints. Elevated CK 1118 on 09/10/2017. DDx: R/O Dementia Medical: Toxic Metabolic Encephalopathy Recommendation/Plan: Will assess patient daily. D/C restraints when not indicated, could be the cause of the patient's elevated CK. Delirium precautions below: 1. Frequently reorient patient and involve him/her in their care (simple explanations of procedures, tests, medications). 2. Lights on and shades open during daytime hours. 3. Try to avoid unnecessary interruptions to sleep during nighttime hours. 4. Obtain glasses, hearing aids from home if patient uses these at baseline. 5. Avoid medications that may exacerbate delirium (especially narcotics, benzodiazepines, barbiturates, ambien, lunesta, and medications with excessive anticholinergic properties). 6. Recommend 1:1 sitter for safety.
--- NOTE | 2017-09-14 15:29 | Progress Note ---
Assessment and Plan Toxic metabolic encephalopathy - likely due to hypernatremia and hyperglycemia - cont Neurochecks, supportive care, treat underlying cause - mental status at baseline Severe hypernatremia. - likely from hyperglycemia and severe dehydration - resolved with Continue 5% Dextrose. - now cont on 1/2 NS Diabetes mellitus type 2 with hyperglycemia. - Continue fingerstick glucose q6h. - started on NPH insulin bid, sliding scale. - BG was uncontrolled due to D5 saline (needed for hypernatremia), fluid now changed to 1/2 NS as Na level improved - cont ADA pureed diet per ST recommendation - became hypoglycemic on 09/13/17, stopped NPH FOR NOW - BG maintaining with SSI and metformin Dementia at baseline. - due to TBI, resides in [place] for last 10 years - cont Supportive care HYPOKALEMIA - REPLETE AND MONITOR Psychosis by history. - will monitor for now - Consulted psych DVT Prophylaxis. - SCds only because of thrombocytopenia Thrombocytopenia. - likely chronic, will monitor Full code status. disposition: will d/c restrain and place him with sitter. If stable will be discharge tomorrow to SNF Hospitalist Physical GEN APPEARANCE : Not in acute distress, restrained HEENT: Normocephalic, Atraumatic NECK : supple, no JVD LUNGS: Clear to auscultation bilaterally, no crackles or wheeze HEART: S1 and S2 regular, no murmurs, rubs or gallop, ABD: Soft, no tenderness, no distension, normal bowel sounds EXT: No edema, no clubbing, no cyanosis NEURO: Awake,alert, oroented to self, moves all extremities Subjective Date of service: 09/14/17 Interval history: mental status improved, remained restrained BG much stable now no new issue Objective - Constitutional Vitals: Vital Signs - 12hr 09/14/17 09/14/17 09/14/17 05:26 08:05 08:06 Temperature 97.3 F L 97.3 F L Pulse Rate 56 L 56 L Respiratory 20 18 Rate Blood Pressure 131/69 121/68 O2 Sat by Pulse 96 96 Oximetry 09/14/17 09/14/17 12:22 13:31 Temperature Pulse Rate 62 Respiratory Rate Blood Pressure 116/53 O2 Sat by Pulse 93 94 Oximetry - Labs CBC & Chem 7: 09/10/17 05:58 09/14/17 09:25 Labs: Abnormal lab results 09/13/17 09/14/17 Range/Units 21:50 09:25 Carbon Dioxide 21 L (22-30) mmol/L Creatinine 0.5 L (0.8-1.5) mg/dL Glucose 177 H (75-100) mg/dL POC Glucose 119 H (70-105) Calcium 7.7 L (8.4-10.2) mg/dL
[2017-09-14] MEDS: NACL 0.45% 1000 ML 1,000 ML IV SCH (19:04)
[2017-09-14] MEDS: LOVENOX SUB-Q SCH (22:55)
--- NOTE | 2017-09-15 08:55 | Progress Note ---
Subjective - Reason for Consult Consult date: 09/15/17 Reason for consult: Psychiatry Follow-up - Chief Complaint Chief complaint: "Good morning" 57-year-old white male presenting to [facility] for AMS. Today patient is calm during the assessment. The patient is more oriented today than yesterday. He was able to state his location when asked. Per his assigned RN, no behavioral disturbance reported overnight. No gestures SI/HI's. Mental Status Exam - Vital signs Last Vital Signs Temp 99.1 F 09/15/17 08:01 Pulse 61 09/15/17 08:01 Resp 18 09/15/17 08:01 BP 106/62 09/15/17 08:01 Pulse Ox 93 09/15/17 08:01 - Exam Narrative exam: MSE: Appearance: calm, cooperative Behavior: regular eye contact Speech: regular rate and tone Mood: "okay" Affect: flat Thought Process: unable to assess Thought Content: no gestures of SI/HI's and AVH's Motor Activity: sitting up in bed Cognition: A/O x2 Insight: limited Judgment: limited Assessment and Plan Impression: Delirium. Today patient is calm during the assessment. Patient in restraints. Elevated CK 1118. DDx: R/O Dementia Medical: Toxic Metabolic Encephalopathy Recommendation/Plan: Will assess patient daily. D/C restraints when not indicated, could be the cause of the patient's elevated CK. Delirium precautions below: 1. Frequently reorient patient and involve him/her in their care (simple explanations of procedures, tests, medications). 2. Lights on and shades open during daytime hours. 3. Try to avoid unnecessary interruptions to sleep during nighttime hours. 4. Obtain glasses, hearing aids from home if patient uses these at baseline. 5. Avoid medications that may exacerbate delirium (especially narcotics, benzodiazepines, barbiturates, ambien, lunesta, and medications with excessive anticholinergic properties). 6. Recommend 1:1 sitter for safety.
[2017-09-15] MEDS: NACL 0.45% 1000 ML 1,000 ML IV SCH (09:00)
[2017-09-15] MEDS: GLUCOPHAGE PO SCH ×2 (09:00→17:51)
--- NOTE | 2017-09-15 13:08 | Discharge Summary ---
Providers - Providers Date of Admission: 09/08/17 21:47 Date of discharge: 09/15/17 Attending physician: BRIDGET PRUITT 09/11/17 12:39 Speech Therapy Evaluation and Treat [CONS] Routine Reason For Exam: r/o aspiration 09/13/17 08:18 Consult to Mental Health [CONS] Routine Reason For Exam: Psychosis Place consult to:: Mental Health Notified:: Neetu SELLERS Phone number called:: [phone] Was contact made?: Yes If yes, spoke with:: [facility] Time called:: 08:02 Primary care physician: ABY BRADSHAW Hospitalization Condition: Stable Hospital course: 57 year old man with history of DM, dementia, psychoses was sent from [facility] for altered mental status. He was unable to provide a history. serum chemistry noted for for Na of 176. He was admitted to hospital for further management. He was stablilized before discharge and communicated with his brother about the d/c planning. he was discharged back to SNF in stable condition. discharge diagnosis and management: Toxic metabolic encephalopathy - likely due to hypernatremia and hyperglycemia - managed with cont Neurochecks, supportive care, treated underlying cause - mental status improved to baseline Severe hypernatremia. - likely from hyperglycemia and severe dehydration - resolved with hypotonic saline 5% Dextrose and/or 1/2 NS. Diabetes mellitus type 2 with hyperglycemia. - A1c 10.4 - Continue fingerstick glucose q6h. - started on NPH insulin bid, sliding scale. - BG was uncontrolled due to D5 saline (needed for hypernatremia), fluid then changed to 1/2 NS as Na level improved - Placed on ADA pureed diet per ST recommendation - became hypoglycemic on 09/13/17, stopped NPH (Long acting insulin) - BG was then maintained with SSI and metformin Dementia at baseline. - due to TBI, resides in [place] for last 10 years - provided Supportive care HYPOKALEMIA - REPLETEd AND MONITORed Psychosis by history. - patient was initially restrained - Consulted psych, resumed home meds DVT Prophylaxis. - SCds only because of thrombocytopenia Thrombocytopenia. - likely chronic, monitored and remained stable Hospitalist Physical GEN APPEARANCE : Not in acute distress, not restrained HEENT: Normocephalic, Atraumatic NECK : supple, no JVD LUNGS: Clear to auscultation bilaterally, no crackles or wheeze HEART: S1 and S2 regular, no murmurs, rubs or gallop, ABD: Soft, no tenderness, no distension, normal bowel sounds EXT: No edema, no clubbing, no cyanosis NEURO: Awake,alert, oroented to self, moves all extremities Disposition: DC/[place]-03 SNF W [facility] CERT Core Measure Documentation - Palliative Care Palliative Care/ Comfort Measures: Not Applicable - Core Measures Any of the following diagnoses?: none Exam - Constitutional Vitals: Temp Pulse Resp BP Pulse Ox 99.1 F 56 L 16 110/54 95 09/15/17 08:01 09/15/17 11:39 09/15/17 11:39 09/15/17 11:39 09/15/17 11:39 Plan Activity: up only with assistance Weight Bearing Status: Non-Weight Bearing Diet: diabetic (pureed diet with thin liquid), per dietitian instruction Follow up with: ABY BRADSHAW MD [Primary Care Provider] - 7 Days Prescriptions: Glipizide/Metformin HCl [glipiZIDE-Metformin 2.5-500 mg] 1 each PO DAILY #60 tablet
[2017-09-15 15:51] VITALS: BP 113/63
== END 2017-09-15 18:30 | disposition home or self-care (01) | DRG 637 ==
LOC: ED 12:21 → 4A 21:47 → 3A 09-14 23:56 → 4A 09-15 00:45 → 3A 09-15 03:45
PROVIDERS: ADMIT Internal Medicine; ATTEND Internal Medicine
DX: E11.65 Type 2 diabetes mellitus with hyperglycemia (principal); G92 Toxic encephalopathy; E87.0 Hyperosmolality and hypernatremia; F29 Unspecified psychosis not due to a substance or known physiological condition; F03.90 Unspecified dementia, unspecified severity, without behavioral disturbance, psychotic disturbance, mood disturbance, and anxiety; E86.0 Dehydration; E87.6 Hypokalemia; D69.6 Thrombocytopenia, unspecified; Z79.4 Long term (current) use of insulin
CPT/HCPCS: 36415; 70450; 80048; 80053; 81001; 82550; 82553; 82805; 82962; 83036; 84484; 85025; 85027; 93005; 93010; 94760; 96361; 96374; G8996-GN; G8997-GN; J1650; J1815; J3480; J7030; J7070